=== PATIENT | male | born 1995 | race African-American/Black ===

== ENCOUNTER 2020-09-27 06:01 | Day surgery (SDC) | payer OTHER ==
[~2020-09-27] VITALS: Ht 165.1 cm; Wt 66.6 kg
[~2020-09-27 06:01] MED LIST: VALT500T PO
[2020-09-27 06:50] LABS: HEMATOCRIT 40.9 % (42.0-52.0); MEAN CORPUSCULAR HEMOGLOBIN 26.7 pg (27.0-33.0); MEAN CORPUSCULAR HGB CONC 31.8 g/dl (32.0-36.5); PLATELET COUNT, AUTOMATED 229 10^3/uL (150-450); RED BLOOD COUNT 4.87 10^6/uL (4.30-6.10); WHITE BLOOD COUNT 5.4 10^3/uL (4.0-10.0)
[2020-09-27] MEDS ORDERED: LR 1,000 ML IV ONE (07:00)
[2020-09-27 07:10] LABS: BLOOD UREA NITROGEN 18 MG/DL (7-18); CARBON DIOXIDE LEVEL 30 MEQ/L (21-32); CHLORIDE LEVEL 106 MEQ/L (98-107); CREATININE FOR GFR 1.11 MG/DL (0.70-1.30); GLOMERULAR FILTRATION RATE > 60.0 (>60); GLUCOSE, FASTING 84 MG/DL (70-100); POTASSIUM SERUM 3.9 MEQ/L (3.5-5.1); SODIUM LEVEL 139 MEQ/L (136-145)
[2020-09-27] MEDS ORDERED: LIDOCAINE 2% W/EPINEPHRINE 20ML VIAL **PRES FREE As Ordered ONE (07:16)
[2020-09-27] MEDS ORDERED: POVIDONE-IODINE 5% OPHTH PREP SOL 30ML As Ordered ONE (07:16)
[2020-09-27] MEDS ORDERED: METHYLENE BLUE 0.5% (5MG/ML) 10 ML AMP (PROVAYBLUE) As Ordered ONE (07:18)
[2020-09-27] MEDS ORDERED: LIDOCAINE 2% 100MG/5ML SDV (FOR ANES.) As Ordered ONE (07:21)
[2020-09-27] MEDS ORDERED: propofoL 200 MG/20 ML VIAL As Ordered ONE (07:21)
[2020-09-27] MEDS ORDERED: ONDANSETRON 4MG/2ML VIAL As Ordered ONE (07:21)
[2020-09-27] MEDS ORDERED: MIDAZOLAM INJ 2MG/2ML VIAL (J2250 PER 1MG) As Ordered ONE (07:22)
[2020-09-27] MEDS ORDERED: fentaNYL 100 MCG/2 ML INJECTION (J3010) As Ordered ONE (07:22)
[2020-09-27] MEDS ORDERED: CLINDAMYCIN 600 MG/50 ML PREMIX BAG As Ordered ONE (07:41)
[2020-09-27] MEDS ORDERED: ACETAMINOPHEN 1000MG 100ML IV BTL (OFIRMEV) (J0131 PER 10MG) As Ordered ONE (08:06)
[2020-09-27] MEDS ORDERED: LACRILUBE (AKWA TEARS) OPHTH OINT 3.5 GM As Ordered ONE (08:06)
[2020-09-27] MEDS ORDERED: dexameTHASONE 4 MG/ML 1ML VIAL (J1100 PER 1MG) As Ordered ONE (08:17)
--- NOTE | 2020-09-27 08:55 | POST-OPPD ---
Postoperative Procedure Note Date Of Procedure: Sep 27, 2020 PREOPERATIVE DIAGNOSIS: Right cauliflower ear. Obstruction external meatus. POSTOPERATIVE DIAGNOSIS: same FINDINGS: Right ear meatus obstruction. PROCEDURE: Right ear otoplasty. SURGEON: Dr Das ANESTHESIA: General SPECIMENS: Right ear tissue ESTIMATED BLOOD LOSS: 1 cc REPLACED: none DRAINS: none COMPLICATIONS: none POSTOPERATIVE CONDITION: stable Dictation: [id number] FRANCISCO DAS DO Sep 27, 2020 08:55
[2020-09-27] MEDS ORDERED: LR 1,000 ML IV SCH (09:30)
[2020-09-27] MEDS ORDERED: fentaNYL 100 MCG/2 ML INJECTION (J3010) IV PRN (09:30)
[2020-09-27] MEDS ORDERED: ONDANSETRON 4MG/2ML VIAL IV PRN (09:30)
[2020-09-27] MEDS ORDERED: oxyCODONE 5MG TAB PO PRN (09:30)
[2020-09-27] MEDS ORDERED: HYDROMORPHONE HCL 0.5 MG/ 0.5 ML SYRINGE (J1170 PER 1) IV PRN (09:30)
[2020-09-27 10:35] VITALS: BP 128/61
--- NOTE | 2020-09-28 09:22 | RO ---
OPERATIVE NOTE DATE OF OPERATION: 09/27/2020 PREOPERATIVE DIAGNOSIS: Right cauliflower ear, obstruction external meatus. POSTOPERATIVE DIAGNOSIS: Right cauliflower ear, obstruction external meatus. PROCEDURE: Right ear otoplasty. FINDINGS: Right ear meatus obstruction. ATTENDING SURGEON: Apple Mcdonald DO ANESTHESIA: General. SPECIMEN(S): Right ear tissue. ESTIMATED BLOOD LOSS: 1 mL. REPLACEMENTS: None. DRAINS: None. COMPLICATIONS: None. INDICATIONS FOR PROCEDURE: This is a 25-year-old male who has a history of previous contact sports. He has both ear deformities with cauliflower ear, right worse than the left. The patient was complaining of muffled hearing on the right side and he has a complete occlusion of his external meatus. Therefore, he is scheduled for otoplasty on the right side with the goal of assisting with removing part of the obstruction on the right. Risks, benefits, and alternatives discussed with the patient in detail and he is ready to proceed. DESCRIPTION OF PROCEDURE: On the day of surgery, he was marked in the preoperative holding area. He was then taken to the operating room and placed in the supine position. Preoperative antibiotics were given. Sequential stockings were placed on the lower calves. General anesthesia was induced. He was prepped and draped in the usual sterile fashion. We started our procedure by giving a preauricular block with 2% Lidocaine with epinephrine. Then, the incision was designed along the tragus in the zigzag fashion, which was carried out using a 15-blade. We then did dissection toward the external opening toward the canal in the subcutaneous fashion and then also, we did some undermining in a lateral fashion. There was a significant amount of cartilage and bone intermixed and fixating into the canal causing the obstruction. It was removed using a knife and small rongeur. Hemostasis was obtained with pressure with minimal bleeding. After the obstructive parts were removed, the skin was examined in good vascular condition and was tacked with 5-0 Vicryl sutures and then was closed in layers with 5-0 Monocryl sutures. We examined the ear with the otoscope without any difficulties. We used Xeroform plug for a dressing. The patient was extubated in the operating room without any difficulties and transferred to recovery in stable condition.
== END 2020-09-27 10:35 | disposition home or self-care (01) ==
LOC: M SDC 06:01
PROVIDERS: ATTEND Plastic Surgery Surgery of the Hand
DX: M95.11 Cauliflower ear, right ear (principal); Z88.0 Allergy status to penicillin
CPT/HCPCS: 36415; 69300; 80048; 85027; 88304; J0131; J1100; J1170; J2250; J2405; J3010; Q9968

== ENCOUNTER 2021-02-07 06:18 | Day surgery (SDC) | payer OTHER ==
[~2021-02-07] VITALS: Ht 165.1 cm; Wt 67.3 kg
[~2021-02-07 06:18] MED LIST changes: +LIDOCAINE 1% MDV 20ML VIAL SQ PRN; +LR 1,000 ML IV ONE
[2021-02-07] MEDS ORDERED: POVIDONE-IODINE 5% OPHTH PREP SOL 30ML As Ordered ONE (06:38)
[2021-02-07] MEDS ORDERED: METHYLENE BLUE 0.5% (5MG/ML) 10 ML AMP (PROVAYBLUE) As Ordered ONE (07:16)
[2021-02-07] MEDS ORDERED: propofoL 200 MG/20 ML VIAL As Ordered ONE (07:22)
[2021-02-07] MEDS ORDERED: ONDANSETRON 4MG/2ML VIAL As Ordered ONE (07:22)
[2021-02-07] MEDS ORDERED: dexameTHASONE 4 MG/ML 1ML VIAL (J1100 PER 1MG) As Ordered ONE (07:22)
[2021-02-07] MEDS ORDERED: LIDOCAINE 2% 100MG/5ML SDV (FOR ANES.) As Ordered ONE (07:22)
[2021-02-07] MEDS ORDERED: MIDAZOLAM INJ 2MG/2ML VIAL (J2250 PER 1MG) As Ordered ONE (07:22)
[2021-02-07] MEDS ORDERED: fentaNYL 100 MCG/2 ML INJECTION (J3010) As Ordered ONE (07:22)
[2021-02-07] MEDS ORDERED: CIPROFLOXACIN/D5W 400 MG/200 ML BAG (J0744) As Ordered ONE (07:25)
[2021-02-07] MEDS ORDERED: LIDOCAINE W/EPINEPHRINE 1% 20ML VIAL As Ordered ONE (07:44)
[2021-02-07] MEDS ORDERED: CIPROFLOXACIN 400 MG in IV 1 EA IV ONE (07:45)
[2021-02-07] MEDS ORDERED: LACRILUBE (AKWA TEARS) OPHTH OINT 3.5 GM As Ordered ONE (07:59)
[2021-02-07] MEDS ORDERED: ACETAMINOPHEN 1000MG 100ML IV BTL (OFIRMEV) (J0131 PER 10MG) As Ordered ONE (07:59)
[2021-02-07] MEDS ORDERED: HYDROmorphone HCL 2 MG/ML 1ML VIAL (J1170) As Ordered ONE (09:04)
--- NOTE | 2021-02-07 09:45 | ROOPDOC ---
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 Patient has significant history of bilateral ear traumas from years ago. Right ear has more deformity than the left. She was operated by several months ago to aide to open the external ear canal. He states his healing improved. He is back for second s tage reconstruction of the right ear with goal to open miguel more, so he is able to use ear plugs for his job. Risks, benefits, and alternatives discussed with the patient. He is ready to proceed. After obtaining informed consent patient brought into the operating room, placed in supine position, perioperative antibiotics given, sequential stockings placed in the lower calves, general anesthesia induced. He was prepped and draped in the usual sterile fashion. 2% lidocaine with epinephrine was infiltrated in the area. Incision carried out through the anterior part of antihelix of right ear. Flap raised inferiorly based to exposed extra cartilaginous tissue at the base of the miguel. Cartilage excess was measures, marked and removed with help of scalpel and rangure. Midas ryan padmini was used to smooth out the are. Excess tissue was remove from antihelix crura as well thru the small superior incision. Wounds irrigated, hemostasis obtained. Incision closed with interrupted 4-0 Monocryl sutures. Good symmetry with Left ear achieved with sufficient opening for the ear canal. Bolster dressing applied and secured with thru and thru sutures for the miguel and crura. Bulky dressing and support sling applied. Patient extubated in operating room, tolerated procedure well, and transferred to recovery room in stable condition. FRANCISCO DAS DO February 07, 2021 09:45
--- NOTE | 2021-02-07 09:45 | POST-OPPD ---
Postoperative Procedure Note Date Of Procedure: February 07, 2021 PREOPERATIVE DIAGNOSIS: Right ear deformity POSTOPERATIVE DIAGNOSIS: same FINDINGS: Cauliflower ear right PROCEDURE: Right ear reconstruction SURGEON: Dr Das ANESTHESIA: General SPECIMENS: Right ear cartilage and bone ESTIMATED BLOOD LOSS: 10 cc REPLACED: none DRAINS: none COMPLICATIONS: none POSTOPERATIVE CONDITION: stable FRANCISCO DAS DO February 07, 2021 09:45
[2021-02-07] MEDS ORDERED: OXYC1TAB23 PO (09:47)
[2021-02-07] MEDS ORDERED: HYDROMORPHONE HCL 0.5 MG/ 0.5 ML SYRINGE (J1170 PER 1) IV PRN (09:55)
[2021-02-07] MEDS ORDERED: fentaNYL 100 MCG/2 ML INJECTION (J3010) IV PRN (09:55)
[2021-02-07] MEDS ORDERED: oxyCODONE 5MG TAB PO PRN (09:55)
[2021-02-07] MEDS ORDERED: LR 1,000 ML IV SCH (09:55)
[2021-02-07] MEDS ORDERED: ONDANSETRON 4MG/2ML VIAL IV PRN (09:55)
[2021-02-07 11:15] VITALS: BP 119/63
== END 2021-02-07 11:15 | disposition home or self-care (01) ==
LOC: M SDC 06:18
PROVIDERS: ATTEND Plastic Surgery Surgery of the Hand
DX: M95.11 Cauliflower ear, right ear (principal); Z88.0 Allergy status to penicillin; F17.290 Nicotine dependence, other tobacco product, uncomplicated
CPT/HCPCS: 69110; 88302; J0131; J1100; J1170; J2250; J2405; J3010